=== PATIENT | male | born 1985 | race Two or more races ===

== ENCOUNTER 2019-03-11 12:36 | Emergency (ER) | payer OTHER ==
[~2019-03-11] VITALS: Ht 188 cm; Wt 95.3 kg
[2019-03-11 16:10] VITALS: BP 130/72
[2019-03-11] MEDS ORDERED: FLUORESCEIN SOD 1 MG TEST STRIP LEFTEYE ONE (17:00)
[2019-03-11] MEDS ORDERED: TETRACAINE HCL 0.5% OPTH(EYE) SOLN 4ML LEFTEYE ONE (18:30)
== END 2019-03-11 18:55 ==
LOC: EDBD 12:36 → EEVIPCON 12:42 → ER 12:42
DX: T15.92XA Foreign body on external eye, part unspecified, left eye, initial encounter (principal)
CPT/HCPCS: 65205